=== PATIENT | female | born 1950 | race Asian ===

== ENCOUNTER → 2023-06-16 10:30 | Outpatient (CLI) | payer OTHER, SELFPAY ==
[2023-06-16 11:48] LABS: Hematocrit 43.2 % (36-46); Hemoglobin 14.6 g/dL (12.0-16.0); Mean Corpuscular HGB Conc 33.9 % (30-36); Mean Corpuscular Hemoglobin 28.9 PG (26-34); Mean Corpuscular Volume 85.3 fL (80-100); Platelet Count 241 X10^3/uL (150-400); Red Blood Cell Count 5.07 X10^6/uL (4.0-5.2); Red Cell Distribution Width 13.8 % (11.6-14.8); White Blood Cell Count 5.1 X10^3/uL (4.5-11.0)
[2023-06-16 12:20] LABS: Alanine Aminotransferase 48 IU/L (<35); Albumin 4.4 g/dL (3.5-5.0); Albumin Globulin Ratio 1.5 (1.0-2.8); Alkaline Phosphatase 64 U/L (38-126); Aspartate Aminotransferase 40 IU/L (14-36); BUN Creatinine Ratio 15.1 (6-22); Bilirubin Total 0.9 mg/dL (0.2-1.3); Blood Urea Nitrogen 8 mg/dL (7-17); Calcium 9.1 mg/dL (8.4-10.2); Carbon Dioxide 25 mmol/L (22-32); Chloride 108 mmol/L (98-107); Cholesterol 137 mg/dL (140-199); Estimated Glomerular Filt Rate > 60 mL/min (>60); Globulin 2.9 g/dL (1.7-4.1); Glucose 88 mg/dL (80-110); HDL Cholesterol 68 mg/dL (40-60); HEMOLYSIS < 15 (0-50); LDL Cholesterol Calculated 56 mg/dL (<100); Potassium 3.8 mmol/L (3.4-5.1); Sodium 139 mmol/L (137-145); Total Protein 7.3 g/dL (6.3-8.2); Triglycerides 65 mg/dL (35-150)
[2023-06-16 12:49] LABS: TSH w/ Reflex to FT4 0.38 uIU/mL (0.47-4.68)
[2023-06-16 13:27] LABS: Free T4, Direct Thyroxine 1.04 ng/dL (0.78-2.19)
== END ==
PROVIDERS: PCP Internal Medicine; Referring Provider Internal Medicine; Visit Provider Internal Medicine
DX: E78.2 Mixed hyperlipidemia (principal); E04.1 Nontoxic single thyroid nodule; Q63.1 Lobulated, fused and horseshoe kidney; N20.0 Calculus of kidney
CPT/HCPCS: 36415; 80053; 80061; 84439; 84443; 85027

== ENCOUNTER → 2023-07-07 11:54 | Outpatient (CLI) | payer OTHER, SELFPAY ==
[2023-07-07 13:20] LABS: TSH w/ Reflex to FT4 0.15 uIU/mL (0.47-4.68)
[2023-07-07 13:47] LABS: Free T4, Direct Thyroxine 1.01 ng/dL (0.78-2.19)
== END ==
PROVIDERS: PCP Internal Medicine; Referring Provider Internal Medicine; Visit Provider Internal Medicine
DX: E04.1 Nontoxic single thyroid nodule (principal)
CPT/HCPCS: 36415; 84439; 84443

== ENCOUNTER → 2023-07-10 10:27 | Outpatient (CLI) | payer OTHER, SELFPAY ==
[2023-07-10 11:49] LABS: Prolactin 7.6 ng/mL (3.0-18.6)
[2023-07-10 11:50] LABS: Free T3, Triiodothyronine Free 4.11 pg/mL (2.77-5.27); Free T4, Direct Thyroxine 1.07 ng/dL (0.78-2.19)
[2023-07-10 12:03] LABS: Follicle Stimulating Hormone 46.1 mIU/mL; Luteinizing Hormone 18.8 mIU/mL
[2023-07-10 12:04] LABS: Thyroid Stimulating Hormone 0.228 uIU/mL (0.47-4.68)
== END ==
LOC: LAB 10:27
PROVIDERS: PCP Internal Medicine; Referring Provider Internal Medicine; Visit Provider Internal Medicine
DX: D35.2 Benign neoplasm of pituitary gland (principal)
CPT/HCPCS: 36415; 83001; 83002; 84146; 84439; 84443; 84481

== ENCOUNTER → 2023-07-30 12:13 | Outpatient (CLI) | payer OTHER, SELFPAY ==
--- NOTE | 2023-07-30 12:15 | DI.RAD.S_ITS ---
PROCEDURE: XR LUMBAR SPINE MIN 4V INDICATIONS: low back pain, no trauma TECHNIQUE: 5 views of the lumbar spine acquired, including flexion and extension views. COMPARISON: None. FINDINGS: Bones: 5 nonrib-bearing vertebrae are present. Anterolisthesis of L4 on L5 measuring 0.6 cm. Minimal retrolisthesis L2 on L3. Lower lumbar spine facet joint hypertrophy. Small vertebral body osteophytes. No vertebral body compression fractures. No suspicious bony lesions. Soft tissues: Overlying bowel gas pattern is normal. No suspicious soft tissue calcifications. Flexion/extension: Decreased range of motion, with preserved normal alignment. IMPRESSION: Mild multilevel DDD and degenerative change. Grade 1 anterolisthesis of L4 on L5. Decreased range of motion with flexion and extension. Dictated by: Josafat Pham M.D. on 07/30/2023 at 21:47 Approved by: Josafat Pham M.D. on 07/30/2023 at 21:49
== END ==
LOC: RAD 12:15
PROVIDERS: PCP Internal Medicine; Referring Provider Internal Medicine; Visit Provider Internal Medicine
DX: M51.36 Other intervertebral disc degeneration, lumbar region (principal); M47.816 Spondylosis without myelopathy or radiculopathy, lumbar region; M43.16 Spondylolisthesis, lumbar region; M54.9 Dorsalgia, unspecified; G89.29 Other chronic pain
CPT/HCPCS: 72110

== ENCOUNTER → 2023-08-16 11:05 | Outpatient (CLI) | payer OTHER, SELFPAY ==
--- NOTE | 2023-08-16 11:06 | DI.MRI.S_ITS ---
PROCEDURE: MR LUMBAR SPINE WO CON INDICATIONS: lumbar spinal stenosis TECHNIQUE: Noncontrast sagittal T1 spin echo and T2 fast echo, sagittal STIR, and T2 fast spin echo through the lumbar spine. In cases with scoliosis, additional coronal T2 fast spin echo may be performed. COMPARISON: None. FINDINGS: Image quality: Excellent. Alignment and Curvature: There is grade 1 L4 on L5 spondylolisthesis. There is likely a displaced left L4-5 pars interarticularis defect. Bone Marrow: Marrow is of normal overall signal. No acute vertebral body compression fractures. Spinal Cord: Conus medullaris terminates at the L1 level. Visualized cord demonstrates normal signal and size. Paraspinous Soft Tissues: No paravertebral masses. T12-L1: Mild disc desiccation and height loss. Mild bilateral foraminal narrowing. No canal stenosis. L1-L2: Moderate disc desiccation and height loss. No canal stenosis. Mild bilateral neural foraminal stenosis. There is a small posterior focal high-intensity zone. L2-L3: Mild disc desiccation and height loss. Broad-based disc bulge. Mild facet ligamentum flavum hypertrophy. No canal stenosis. Mild right and moderate left foraminal stenosis. L3-L4: Mild disc desiccation and height loss. Broad-based disc bulge. Severe facet ligamentum flavum hypertrophy. Severe canal stenosis. Moderate bilateral foraminal stenosis. L4-L5: Anterolisthesis. Mild disc desiccation and height loss. Severe facet and ligamentum flavum hypertrophy. Moderate canal stenosis. Moderate right and mild left foraminal narrowing. L5-S1: Severe disc desiccation and height loss. There is a right paracentral broad-based 1.0 x 0.3 cm disc bulge (series 6/image 23). No canal stenosis. Moderate bilateral foraminal stenosis. IMPRESSION: 1. 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 2. Multilevel disc desiccation and height loss most severe at L1-2. 3. Multilevel broad-based disc bulges and facet and ligamentum flavum hypertrophy with resultant severe canal stenosis at L3-4 and moderate canal stenosis at L4-5. 4. Moderate bilateral foraminal stenosis at L3-4 and L5-S1, moderate left foraminal stenosis at L2-3 and moderate right foraminal stenosis at L4-5. 5. 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 Dictated by: Tona Garcia M.D. on 08/17/2023 at 8:36 Approved by: Tona Garcia M.D. on 08/17/2023 at 8:43
== END ==
PROVIDERS: PCP Internal Medicine; Referring Provider Internal Medicine; Visit Provider Internal Medicine
DX: M48.061 Spinal stenosis, lumbar region without neurogenic claudication (principal); M48.07 Spinal stenosis, lumbosacral region; M47.816 Spondylosis without myelopathy or radiculopathy, lumbar region; M43.16 Spondylolisthesis, lumbar region; M51.36 Other intervertebral disc degeneration, lumbar region; M51.37 Other intervertebral disc degeneration, lumbosacral region
CPT/HCPCS: 72148

== ENCOUNTER 2023-10-14 12:30 | Outpatient (CLI) | payer OTHER, SELFPAY ==
[2023-10-14 13:45] VITALS: BP 125/61; PULSE 66; RESP 16; TEMP 36.8; O2SAT 95
--- NOTE | 2023-10-14 14:00 | DI.RAD.S_ITS ---
PROCEDURE: PAIN L/SI FACET INJ/BLK 1STL INDICATIONS: spondylosis COMPARISON: None. FINDINGS: Fluoroscopic spot filming was performed to verify placement of spinal needles at the right L3, L4, L5 level(s), as labeled on the films. Appropriate location(s) of the needle tip(s) was confirmed by injection of iodinated contrast. IMPRESSION: Fluoroscopic support for right L3, L4, and L5 medial branch block Please see separate procedure note for further details. Dictated by: Flo Eddy M.D. on 10/14/2023 at 16:48 Approved by: Flo Eddy M.D. on 10/14/2023 at 16:48
[2023-10-14 14:05] VITALS: BP 131/64; PULSE 62; RESP 14; O2SAT 99
[2023-10-14] MEDS: iopamidoL 15 ML VIAL 3 ML INJ (14:06)
[2023-10-14] MEDS: BUPIVACAINE 0.5% (PF) 10 ML VIAL 5 ML INJ (14:07)
[2023-10-14 14:10] VITALS: BP 129/70; PULSE 59; RESP 14; O2SAT 99
[2023-10-14 14:16] VITALS: BP 134/72; PULSE 63; RESP 18; O2SAT 96
--- NOTE | 2023-10-14 16:34 | P.PCN_ITS ---
Date/Time/Diagnoses Date of procedure: 10/14/23 Time of procedure: 14:00 Procedure Notes Physician: Demarco Giron Total Fluoroscopy time (seconds): 11 Total sedation minutes: 0 Procedure in detail & Post-procedure care: Right L3, 4, 5 Lumbar Medial Branch Blocks Indications: Cortney is presenting for treatment of lumbar spondylosis with low back pain. Preoperative diagnosis: Lumbar spondylosis Postoperative diagnosis: Same Pre-procedure History: Patient demonstrates today moderate to severe non- radicular back pain without neurologic deficit aggravated by hyperextension yes Back pain greater than leg pain? yes Patient today has tenderness over the suspected joint(s) yes History of post-traumatic injury? no Hypertrophic arthropathy yes Back pain associated with suspected motion segment instability, hypermobility or pseudoarthrosis no Focused Examination: Ax3 Mood and affect are normal Vital Signs: VSS Consent: Following review of allergies and potential side effects/complications, including, but not necessarily limited to, infection, allergic reaction, local tissue breakdown, stroke, temporary or permanent nerve injury, paralysis, and possible , the patient indicated that they understood and agreed to proceed.? An informed consent document was signed by the patient, witnessed by a nurse and placed in the patient's chart.? Additionally, other treatment options including medications and physical therapy were reviewed with the patient. All questions were answered. Site was then marked. Anesthesia: Local Position: Prone Monitoring: NIBP, Pulse oximetry, 3 lead EKG Needle used: 22 ga 3.5 inch spinal needle Contrast: Isovue 300M Injectate: 0.5% bupivacaine 1 mL per site Procedure: The patient was brought into the procedure room and positioned into the prone position. Skin was prepped with a Chloraprep solution, allowed to air dry, and then draped in sterile fashion.? The right L4-5 and L5-S1 facet joints were visually identified with fluoroscopy. Lidocaine 1% was used to anesthetize the skin over each target destination with a 25ga needle. A 22 ga, 3.5 inch spinal needle was advanced to the location of the medial branch at the junction of the superior articular process and the transverse process at L4,5 and the base of the SAP of the sacrum using intermittent fluoroscopy in the AP view. Isovue 300M contrast 0.2ml was injected at each level outlining the medial borders for each level and the base of the SAP of the sacrum in the AP and lateral views. There was no evidence of vascular or intrathecal uptake. The above injectate was slowly injected at each target destination. Post Procedure: Patient was taken to the recovery and monitored. The patient was provided a Pain Log to continue to record the patient's response to the target- specific procedure prior to the patient's follow-up visit with the referring physician. Patient was stable upon discharge. Detailed post procedure instructions were provided. Patient was asked to call in the event of worsening pain, fever, weakness, numbness or bladder or bowel incontinence. Based on the medial branches blocked today, if the patient meets insurance criteria for radiofrequency, the treatment should result in the denervation of the right L4-5 and L5-S1 facet joint nerves. We would expect to denervate a total of 2 facets during the radiofrequency ablation.
== END 2023-10-14 14:36 | disposition home or self-care (01) ==
LOC: RAD 12:30
PROVIDERS: PCP Internal Medicine; Referring Provider Anesthesiology; Visit Provider Anesthesiology
DX: M47.816 Spondylosis without myelopathy or radiculopathy, lumbar region (principal)
CPT/HCPCS: 64493; 64494

== ENCOUNTER → 2024-07-28 07:13 | Outpatient (CLI) | payer OTHER, SELFPAY ==
[2024-07-28 07:41] LABS: Hematocrit 43.4 % (36-46); Hemoglobin 14.7 g/dL (12.0-16.0); Mean Corpuscular HGB Conc 33.7 % (30-36); Mean Corpuscular Hemoglobin 29.9 PG (26-34); Mean Corpuscular Volume 88.8 fL (80-100); Platelet Count 236 X10^3/uL (150-400); Red Blood Cell Count 4.89 X10^6/uL (4.0-5.2)
[2024-07-28 08:04] LABS: Alanine Aminotransferase 24 IU/L (<35); Albumin 4.4 g/dL (3.5-5.0); Alkaline Phosphatase 52 U/L (38-126); Aspartate Aminotransferase 25 IU/L (14-36); BUN Creatinine Ratio 17.5 (6-22); Bilirubin Total 0.9 mg/dL (0.2-1.3); Blood Urea Nitrogen 10 mg/dL (7-17); Calcium 9.3 mg/dL (8.4-10.2); Carbon Dioxide 30 mmol/L (22-32); Chloride 104 mmol/L (98-107); Cholesterol 150 mg/dL (140-199); Estimated Glomerular Filt Rate > 60 mL/min (>60); Globulin 2.2 g/dL (1.7-4.1); Glucose 94 mg/dL (80-110); HDL Cholesterol 82 mg/dL (40-60); HEMOLYSIS < 15 (0-50); LDL Cholesterol Calculated 48 mg/dL (<100); Potassium 3.9 mmol/L (3.4-5.1); Sodium 141 mmol/L (137-145); Total Protein 6.6 g/dL (6.3-8.2); Triglycerides 98 mg/dL (35-150)
[2024-07-28 08:32] LABS: TSH w/ Reflex to FT4 0.39 uIU/mL (0.47-4.68)
[2024-07-28 09:25] LABS: Free T4, Direct Thyroxine 0.81 ng/dL (0.78-2.19)
== END ==
PROVIDERS: PCP Internal Medicine; Referring Provider Internal Medicine; Visit Provider Internal Medicine
DX: E78.2 Mixed hyperlipidemia (principal); R79.89 Other specified abnormal findings of blood chemistry; E04.1 Nontoxic single thyroid nodule
CPT/HCPCS: 36415; 80053; 80061; 84439; 84443; 85027

== ENCOUNTER → 2024-08-22 14:24 | Outpatient (CLI) | payer OTHER, SELFPAY ==
--- NOTE | 2024-08-22 14:28 | DI.US.S_ITS ---
PROCEDURE: US THYROID INDICATIONS: low TSH, hx FNA thyroid nodules TECHNIQUE: Real-time scanning was performed of the thyroid gland, with image documentation. COMPARISON: None. FINDINGS: Thyroid: Right lobe measures 5.6 x 3.2 x 2.9 cm. Left lobe measures 4.8 x 1.8 x 2.5 cm. Isthmus is 0.3 cm thick. Echotexture is heterogeneous. Nodule number: 1 Location: Right superior Size: 2.9 x 3.3 x 2.5 cm. Composition: Solid Echogenicity: Isoechoic Shape: wider than tall. Margins: Smooth Echogenic foci: None Total points: 3 ACR TI-RADS category: 3, mildly suspicious Nodule number: 2 Location: Right mid Size: 1.9 x 1.6 x 2.0 cm. Composition: Solid Echogenicity: Hypoechoic Shape: wider than tall. Margins: Ill-defined Echogenic foci: Macro calcifications Total points: 5 ACR TI-RADS category: 4, moderately suspicious Nodule number: 3 Location: Left superior Size: 1.9 x 1.1 x 1.4 cm. Composition: Solid Echogenicity: Isoechoic Shape: wider than tall. Margins: Ill-defined Echogenic foci: None Total points: 3 ACR TI-RADS category: 3, mildly suspicious Nodule number: 4 Location: Left mid Size: 1.4 x 1.4 x 1.1 cm. Composition: Solid Echogenicity: Hypoechoic Shape: wider than tall. Margins: Smooth Echogenic foci: None Total points: For ACR TI-RADS category: 4, moderately suspicious IMPRESSION: Multiple thyroid nodules as described above. Both right thyroid nodules qualify for fine-needle aspiration. Recommend 1 year follow-up ultrasound for the left thyroid nodules. ACR TI-RADS definitions and recommendations: TI-RADS 1 (benign): 0 points. FNA not needed. TI-RADS 2 (not suspicious): 2 points. FNA not needed. TI-RADS 3: 3 points. * FNA if 2.5 cm or larger, follow up if 1.5 cm or larger (at 1, 3, and 5 years). TI-RADS 4: 4-6 points. * FNA if 1.5 cm or larger, follow up if 1 cm or larger (at 1, 2, 3, and 5 years). TI-RADS 5: 7 points or more. * FNA if 1 cm or larger, follow up if 0.5 cm or larger (every year for 5 years). Dictated by: Humberto Chin M.D. on 08/23/2024 at 10:01 Approved by: Humberto Chin M.D. on 08/23/2024 at 10:07
[2024-08-22 16:13] LABS: Free T3, Triiodothyronine Free 4.32 pg/mL (2.77-5.27); Free T4, Direct Thyroxine 0.77 ng/dL (0.78-2.19)
[2024-08-22 16:27] LABS: Thyroid Stimulating Hormone 0.337 uIU/mL (0.47-4.68)
== END ==
LOC: US 14:26
PROVIDERS: PCP Internal Medicine; Referring Provider Internal Medicine; Visit Provider Internal Medicine
DX: E04.2 Nontoxic multinodular goiter (principal); R79.89 Other specified abnormal findings of blood chemistry
CPT/HCPCS: 36415; 76536; 84439; 84443; 84481

== ENCOUNTER → 2024-09-19 13:40 | Outpatient (CLI) | payer OTHER, SELFPAY ==
--- NOTE | 2024-09-19 | PATH_ITS ---
Note [facility] Accession Number: [id number] TESTS RESULT FLAG UNITS REF RANGE LAB Clinician Provided Cytology Information No. of containers..02 Previously Prepared Cytology Slide 35 Unknown Storage/container code(s) Source: RIGHT THYROID NODULE #2 DIAGNOSIS: RIGHT THYROID NODULE #2, FINE NEEDLE ASPIRATION. ADEQUATE FOR EVALUATION. COLLOID AND FOLLICULAR GROUPS ARE PRESENT. FAVOR BENIGN FOLLICULAR (GOITEROUS) NODULE (BETHESDA CATEGORY II), SEE COMMENT. COMMENT: MICROSCOPIC EXAMINATION REVEALS A MILDLY CELLULAR ASPIRATE, COMPOSED OF COLLOID AND FOLLICULAR GROUPS WITHOUT SIGNIFICANT CYTOLOGIC OR ARCHITECTURAL ATYPIA. THESE FINDINGS SUPPORT A BENIGN FOLLICULAR (GOITEROUS) NODULE. CORRELATION WITH CLINICAL AND RADIOGRAPHIC FINDINGS IS RECOMMENDED. ACCORDING TO THE B[place]DA REPORTING SYSTEM FOR THYROID CYTOPATHOLOGY, THE RISK OF MALIGNANCY IN THE CATEGORY BENIGN-CATEGORY II IS 0-3%; THEREFORE RECOMMEND CONTINUED ULTRASOUND SURVEILLANCE WITH REPEAT FNA IF THE NODULE SIGNIFICANTLY INCREASES IN SIZE. Pathologist ICD10: 01 E04.2 Signed out by: Sourav Cast MD, Pathologist NPI- [id number] Performed by: Barbara Shen, Manager Linux ([facility]) Gross description: 01 30 CC, COLORLESS, CLEAR RECIEVED: IN CYTOLYT WITH 6 ALCOHOL FIXED AND 6 QUICK STAINED SLIDES ALSO 1 RNA VIAL WILL ON 12-13-2028.VO /VDU 09/20/[address] [place] [address] FLAG LEGEND: L-Low Normal,H-High Normal,LL-Alert Low,HH-Alert High <-Panic Low,>-Panic High,A-Abnormal,AA-Critical Abnormal Performed at: 01 =Z [facility], [place] [address] Mando Hall MD, Performed at: [address] [address], [place], [place] [id number] MD Mando Hall MD Phone: [phone]
--- NOTE | 2024-09-19 | PATH_ITS ---
Note [facility] Accession Number: [id number] TESTS RESULT FLAG UNITS REF RANGE LAB Clinician Provided Cytology Information No. of containers..02 Previously Prepared Cytology Slide 35 Unknown Storage/container code(s) Source: RIGHT THYROID NODULE #1 DIAGNOSIS: RIGHT THYROID NODULE #1 NON-DIAGNOSTIC. BETHESDA CATEGORY I. NONDIAGNOSTIC: INSUFFICIENT FOLLICULAR CELLS FOR EVALUATION; PREDOMINANTLY BLOOD. Pathologist ICD10: E04.1 Signed out by: Nicole Zuluaga DO, Pathologist NPI- [id number] Performed by: Sen Castellano, Service Desk Lead ([facility] [place]) Gross description: 30 CC, COLORLESS, CLEAR RECIEVED: IN CYTOLYT WITH 6 ALCOHOL FIXED AND 6 QUICK STAINED SLIDES ALSO 1 RNA VIAL WILL ON 12-13-2028.VO /VDU 09/20/2024 10[address] FLAG LEGEND: L-Low Normal,H-High Normal,LL-Alert Low,HH-Alert High <-Panic Low,>-Panic High,A-Abnormal,AA-Critical Abnormal Performed at: 01 =Z [facility] [address], [place] [address] Mando Hall MD, Performed at: 01 [facility] [address], [place], [place] [id number] MD Mando Hall MD Phone: [phone]
--- NOTE | 2024-09-19 13:41 | DI.US.S_ITS ---
PROCEDURE: US FINE NEEDLE ASPIRATION INDICATIONS: abnormal thyroid labs, hx FNA 2022 TECHNIQUE: The indications, alternatives, benefits, risks, and complications of the procedure were explained to the patient. Written informed consent was obtained and placed in the chart. The thyroid region was examined sonographically and a site was chosen for ultrasound guided percutaneous sampling. The skin was prepared and draped in the usual fashion, and anesthetized with 1% lidocaine infiltrated from the skin down to the thyroid gland. Multiple passes were then performed, with contents emptied into an appropriate pathology specimen container. A bandage was applied to the area of access at completion of the study. COMPARISON: [facility], [place], US THYROID, 08/22/2024, 15:10. FINDINGS: Locations of lesions sampled: Right superior and mid (nodules #1 and #2 on ultrasound from 08/22/2024). [place]: 25 gauge hypodermic needles. Number of passes: 6 passes for each nodule (12 total) Medications: 1% lidocaine for local anaesthesia. Complications: None. IMPRESSION: Successful ultrasound-guided thyroid nodule fine needle aspiration, with cytology results pending. Please see chart below for management recommendations based on cytology results. [facility] ReportingRecommendationsNon-diagnostic* Repeat US-guided FNA, with on-site cytology evaluation if possible. * Repeated non-diagnostic nodules without high suspicion US features: close observation vs surgical consult. * Consider surgery if nodule has high suspicion US features, grows >20% in 2 dimensions on followup, or patient has clinical risk factors for malignancy. Benign* If nodule has high suspicion US features: repeat US and FNA within 12 months. * If nodule has low to intermediate suspicion US features: repeat US at 12-24 months. If nodule grows (20% increase in at least 2 dimensions, with minimal increase of 2 mm or >50% change in volume), or development of new suspicious US features, then repeat FNA or continue followup. * If nodule has very low suspicion US features: followup US at >24 months. Atypia of undetermined significance, follicular lesion of undetermined significanceRepeat FNA, molecular testing, followup US, or surgical consult.Follicular neoplasm, suspicious for follicular neoplasmSurgical consult; also consider molecular testing. Suspicious for malignancySurgical consult.MalignantSurgical consult. Approved by: Franko Sams M.D. on 09/19/2024 at 15:01
== END ==
PROVIDERS: PCP Internal Medicine; Referring Provider Internal Medicine; Visit Provider Internal Medicine
DX: R79.89 Other specified abnormal findings of blood chemistry (principal); E04.1 Nontoxic single thyroid nodule; R63.5 Abnormal weight gain
CPT/HCPCS: 10005